=== PATIENT | female | born 1940 | race Caucasian/White ===

== ENCOUNTER 2020-08-29 09:05 | Emergency (ER) | payer OTHER ==
[~2020-08-29] VITALS: Ht 167.6 cm; Wt 77.1 kg
[~2020-08-29 09:05] MED LIST: ALBU90OI INH; ARIP15 PO; ASPI81CH PO; AZIT250 PO; BLACK CURRENT SEED; CALCIUM 1,0001 EACH PO; CALMAGZIN; CHOL10002 PO; CITA20 PO; COLCHICINE0.6 MG PO; CYAN1000I IM; CYCL0.05OP BOTHEYES; CYCL10; DOXY100 PO; FAMO40 PO; FLUO10; FOLI1; FOLI1 PO; FURO20 PO; GABA100 PO; HYDGUAL120 PO; HYDSUL200; HYDSUL200 PO; LORA1 PO; MAXALT-MLT; METTREX2.5; METTREX2.5 PO; MULVITMINF; Motion Sickness25 M1 PO; POLY500; PRED10; PRED10 PO; PRED5; RIZA; SULTRIDS PO; Super B Comple150 MG PO; TOCO400; VENL150ER PO; [UNRECOGNIZED DRUG - OTHER]; [UNRECOGNIZED DRUG - OTHER] INJ; [UNRECOGNIZED DRUG - REMARK]; [UNRECOGNIZED DRUG - REMARK]; [UNRECOGNIZED DRUG - REMARK]; [UNRECOGNIZED DRUG - REMARK]
[2020-08-29] MEDS ORDERED: CEPH500 PO (10:11)
== END 2020-08-29 10:20 | disposition home or self-care (01) ==
LOC: ER 09:05
DX: J34.0 Abscess, furuncle and carbuncle of nose (principal); Z88.2 Allergy status to sulfonamides; Z88.8 Allergy status to other drugs, medicaments and biological substances; Z88.6 Allergy status to analgesic agent; Z79.82 Long term (current) use of aspirin
CPT/HCPCS: 99283